=== PATIENT | male | born 1955 ===

== ENCOUNTER 2018-08-23 11:18 | Inpatient (IN) ==
[2018-08-23] MEDS ORDERED: PANTOPRAZOLE 40 MG VIAL IV STA (11:35)
[2018-08-23] MEDS ORDERED: MIDAZOLAM 2 MG/2 ML VIAL IV STA (12:00)
[2018-08-23] MEDS ORDERED: SODIUM CHLORIDE 0.9% 2,000 ML IV STA (12:11)
[2018-08-23] MEDS ORDERED: NOREPINEPHRINE 4 MG/4 ML VIAL IV ONE (12:13)
[2018-08-23] MEDS ORDERED: HYDROCORTISONE 100 MG VIAL ONE (12:20)
[2018-08-23] MEDS: NOREPINEPHRINE 16 MG in SODIUM CHLORIDE 0.9% 234 ML IV PRN ×2 (12:25→19:31)
[2018-08-23] MEDS ORDERED: SODIUM BICARBONATE 50 MEQ/50 ML SYRINGE IV ONE ×5 (12:45→22:25)
[2018-08-23] MEDS ORDERED: PHENYLEPHRINE DRIP 40 MG/250 ML PREMIX IV ONE (12:53)
[2018-08-23] MEDS: PHENYLEPHRINE DRIP 40 MG/250 ML PREMIX IV SCH ×2 (12:56→17:55)
[2018-08-23 13:08] LABS: ABG HCO3 12.2 MMOL/L (20-26); ABG Oxygen Saturation 52.2 % (95-100); ABG PCO2 51.2 MM HG (35-48); ABG PO2 47.8 MM HG (80-95); ABG TCO2 13.8 MMOL/L (23-27)
[2018-08-23 13:10] LABS: ABG PH 6.996 (7.35-7.45)
[2018-08-23 13:11] LABS: Basophils # 0.1 10*3/uL (0.0-0.2); Basophils % 0.3 % (0.0-0.8); Eosinophils # 0.1 10*3/uL (0.0-0.87); Eosinophils % 0.7 % (0.00-10.9); Hematocrit 21.3 VOL% (42.0-52.0); Immature Granulocytes % 4.6 %; Immature Granulocytes Absolute 0.94 #; Lymphocytes # 3.7 10*3/uL (1.4-4.0); Lymphocytes % 17.9 % (21.2-54.2); Mean Corpuscular Hemoglobin 33 PG (27-34); Mean Corpuscular Volume 108.7 FL (87-102); Mean Platelet Volume 14.4 FL (9.6-12.0); Monocytes # 1.4 10*3/uL (0.11-0.8); NRBC # 0.04 10*3/uL; Neutrophils # 14.2 10*3/uL (1.4-7.4); Neutrophils % 69.5 % (38.7-73.9); Platelet Count 200 T/CUMM (130-400); Red Blood Count 1.96 MC/CUMM (3.8-5.5); White Blood Count 20.4 T/CUMM (4-12)
[2018-08-23] MEDS ORDERED: SODIUM CHLORIDE 0.9% 1,000 ML IV PRN ×2 (13:13→21:48)
[2018-08-23 13:14] LABS: Hemoglobin 6.4 GM/DL (14.0-18.0)
[2018-08-23] MEDS ORDERED: ONDANSETRON 4 MG/2 ML VIAL IV PRN (13:22)
[2018-08-23] MEDS ORDERED: MORPHINE 4 MG/1 ML VIAL IV PRN (13:22)
[2018-08-23] MEDS ORDERED: ALBUTEROL 2.5 MG/3 ML NEB RESP TX PRN (13:22)
[2018-08-23] MEDS ORDERED: ACETAMINOPHEN 325 MG TABLET PO PRN (13:22)
[2018-08-23] MEDS ORDERED: ALBUTEROL/IPRATROPIUM 3 ML NEB RESP TX PRN (13:22)
[2018-08-23 13:30] LABS: INR 1.6; PT Patient Result 17.8 SECS; Partial Thromboplastin Time 34.9 SECS (0-40)
[2018-08-23 13:36] LABS: Alanine Aminotransferase 303 U/L (16-61); Albumin 1.5 G/DL (3.4-5.0); Alkaline Phosphatase 159 U/L (45-117); Aspartate Amino Transferase > 1000 U/L (0-37); Blood Urea Nitrogen 21 MG/DL (7-18); Calcium 7.9 MG/DL (8.5-10.1); Glucose 87 MG/DL (74-106); Potassium 5.9 MMOL/L (3.5-5.1); Sodium 143 MMOL/L (136-145); Total Protein 5.7 G/DL (6.4-8.3)
[2018-08-23 13:39] LABS: Band Neutrophils 2 % (0-10); Eosinophils 2 % (0-10); Hypochromasia 1+; Lymphocytes 15 % (20-55); Myelocytes 1 %; Segmented Neutrophils 74 % (50-85); Total Cells Counted 100
[2018-08-23 13:40] LABS: Anisocytosis Slight; Platelet Estimate Adequate
[2018-08-23] MEDS: PANTOPRAZOLE 40 MG VIAL IV SCH (13:53)
[2018-08-23] MEDS: cefTRIAXone 1,000 MG in SYRINGE 1 EACH IV SCH (13:55)
[2018-08-23] MEDS ORDERED: SODIUM BICARBONATE 50 MEQ/50 ML VIAL IV ONE ×3 (14:14→14:22)
[2018-08-23] MEDS ORDERED: HYDROCORTISONE 100 MG VIAL IV ONE (14:14)
[2018-08-23] MEDS ORDERED: HEPARIN/NACL 0.9% 2 UNITS/ML 2,000 ML IV ONE (14:23)
[2018-08-23] MEDS ORDERED: SODIUM CHLORIDE 0.9% 1,000 ML IV STA (14:23)
[2018-08-23] MEDS: SODIUM BICARB INJ 150 MEQ in DEXTROSE 5% 850 ML IV SCH ×2 (14:45→20:43)
[2018-08-23] MEDS ORDERED: CALCIUM GLUCONATE 1,000 MG in SODIUM CHLORIDE 0.9% 100 ML IV ONE (15:00)
[2018-08-23] MEDS ORDERED: VECURONIUM 10 MG VIAL IV ONE ×2 (15:01→15:02)
[2018-08-23 15:27] LABS: ABG Base Excess -19.4 MMOL/L (-2.5-2.5); ABG HCO3 10.1 MMOL/L (20-26); ABG Oxygen Saturation 99.5 % (95-100); ABG PCO2 30.7 MM HG (35-48); Glucose Heart Surgery 135 MG/DL (74-106); Hematocrit Heart Surgery 29.1 PERCENT (42-52); Hemoglobin Heart Surgery 9.4 G/DL (14.0-18.0); Potassium Heart/CVR 5.5 MMOL/L (3.5-5.1)
[2018-08-23 15:32] LABS: ABG PH 7.093 (7.35-7.45)
[2018-08-23] MEDS ORDERED: ceFAZolin 1,000 MG VIAL ONE (16:28)
[2018-08-23] MEDS ORDERED: MIDAZOLAM 2 MG/2 ML VIAL ONE (18:32)
[2018-08-23] MEDS ORDERED: ROCURONIUM 100 MG/10 ML VIAL IV ONE (18:32)
[2018-08-23 18:45] LABS: Apearance,Urine Slightly Hazy (Clear); Bilirubin,Urine Negative (Negative); Blood, Urine Large mg/dL (Negative); Glucose,Urine (UA) Negative (Negative); Ketones,Urine Negative (Negative); Nitrite,Urine Negative (Negative); Protein,Urine Negative; RBC,Urine <1 /HPF (0-4); Urine Color Yellow (Yellow); Urine Urobilinogen < 2.0 EU/DL (0.2-1.0); WBC,Urine 1 /HPF (0-6)
[2018-08-23 19:01] LABS: Barbiturates Screen,Urine Negative (Negative); Benzodiazepines Screen,Urine Negative (Negative); Cannabinoid Screen,Urine Negative (Negative); Opiate Screen,Urine Negative (Negative); Phencyclidine Screen,Urine Negative (Negative)
[2018-08-23] MEDS: PROPOFOL 1,000 MG/100 ML BOTTLE IV SCH (19:18)
[2018-08-23] MEDS: MIDAZOLAM 100 MG in SODIUM CHLORIDE 0.9% 80 ML IV SCH (19:18)
[2018-08-23 20:01] LABS: Basophils # 0.1 10*3/uL (0.0-0.2); Basophils % 0.4 % (0.0-0.8); Eosinophils # 0.1 10*3/uL (0.0-0.87); Eosinophils % 0.2 % (0.00-10.9); Hematocrit 32.6 VOL% (42.0-52.0); Immature Granulocytes % 2.9 %; Immature Granulocytes Absolute 0.95 #; Lymphocytes # 4.4 10*3/uL (1.4-4.0); Lymphocytes % 13.4 % (21.2-54.2); Mean Corpuscular HGB Conc 30.7 GM/DL (32-36); Mean Corpuscular Hemoglobin 32 PG (27-34); Mean Corpuscular Volume 102.8 FL (87-102); Mean Platelet Volume 14.1 FL (9.6-12.0); Monocytes # 2.6 10*3/uL (0.11-0.8); Monocytes % 7.9 % (1.7-12.7); Neutrophils # 24.6 10*3/uL (1.4-7.4); Neutrophils % 75.2 % (38.7-73.9); Platelet Count 183 T/CUMM (130-400); Red Blood Count 3.17 MC/CUMM (3.8-5.5); Red Cell Distribution Width 17.1 % (9.3-17.3); White Blood Count 32.8 T/CUMM (4-12)
[2018-08-23 20:21] LABS: Lymphocytes 14 % (20-55); Segmented Neutrophils 79 % (50-85); Total Cells Counted 100
[2018-08-23 20:22] LABS: Platelet Estimate Adequate
[2018-08-23 20:31] LABS: Albumin 1.6 G/DL (3.4-5.0); Bilirubin,Total 6.1 MG/DL (0.2-1.0); Calcium 7.5 MG/DL (8.5-10.1); Osmolality,Calculated 289.1 MOS/KG (273-304); Potassium 5.8 MMOL/L (3.5-5.1); Total Protein 5.9 G/DL (6.4-8.3)
[2018-08-23] MEDS: PHENYLEPHRINE INJ 160 MG in SODIUM CHLORIDE 0.9% 234 ML IV PRN (20:39)
[2018-08-23] MEDS ORDERED: DOPamine 800 MG/250 ML PREMIX IV ONE (20:54)
[2018-08-23] MEDS: DOPamine 800 MG/250 ML PREMIX IV PRN ×2 (21:00→23:26)
[2018-08-23 22:05] LABS: Hematocrit 31.1 VOL% (42.0-52.0); Hemoglobin 9.5 GM/DL (14.0-18.0)
[2018-08-23 22:13] LABS: ABG Base Excess -22.9 MMOL/L (-2.5-2.5); ABG HCO3 8.6 MMOL/L (20-26); ABG PCO2 27.8 MM HG (35-48); ABG TCO2 7.1 MMOL/L (23-27)
[2018-08-23 22:17] LABS: ABG PH 7.035 (7.35-7.45)
[2018-08-23] MEDS: VASOPRESSIN 100 UNITS in SODIUM CHLORIDE 0.9% 95 ML IV SCH (23:40)
[2018-08-24 00:38] LABS: ABG Base Excess -22.4 MMOL/L (-2.5-2.5); ABG HCO3 6.8 MMOL/L (20-26); ABG Oxygen Saturation 99.2 % (95-100); ABG PCO2 25.7 MM HG (35-48); ABG PO2 345.5 MM HG (80-95); ABG TCO2 7.6 MMOL/L (23-27)
[2018-08-24 00:41] LABS: ABG PH 7.039 (7.35-7.45)
[2018-08-24] MEDS: DOPamine 800 MG/250 ML PREMIX IV PRN ×4 (01:50→09:42)
[2018-08-24] MEDS: NOREPINEPHRINE 16 MG in SODIUM CHLORIDE 0.9% 234 ML IV PRN ×3 (02:12→17:59)
[2018-08-24] MEDS: SODIUM BICARB INJ 150 MEQ in DEXTROSE 5% 850 ML IV SCH ×3 (03:24→17:57)
[2018-08-24] MEDS: PHENYLEPHRINE INJ 160 MG in SODIUM CHLORIDE 0.9% 234 ML IV PRN ×3 (04:49→23:06)
[2018-08-24 04:55] LABS: ABG Base Excess -23.5 MMOL/L (-2.5-2.5); ABG Oxygen Saturation 99.1 % (95-100); ABG PCO2 26.2 MM HG (35-48); ABG TCO2 6.5 MMOL/L (23-27)
[2018-08-24 05:03] LABS: Basophils # 0.2 10*3/uL (0.0-0.2); Basophils % 0.6 % (0.0-0.8); Eosinophils # 0.1 10*3/uL (0.0-0.87); Eosinophils % 0.2 % (0.00-10.9); Hematocrit 35.7 VOL% (42.0-52.0); Immature Granulocytes % 3.8 %; Immature Granulocytes Absolute 1.44 #; Lymphocytes # 5.9 10*3/uL (1.4-4.0); Lymphocytes % 15.7 % (21.2-54.2); Mean Corpuscular HGB Conc 30.8 GM/DL (32-36); Mean Corpuscular Hemoglobin 31 PG (27-34); Monocytes # 2.8 10*3/uL (0.11-0.8); Monocytes % 7.6 % (1.7-12.7); NRBC # 0.04 10*3/uL; Neutrophils # 27.1 10*3/uL (1.4-7.4); Neutrophils % 72.1 % (38.7-73.9); Platelet Count 134 T/CUMM (130-400); Red Cell Distribution Width 18.2 % (9.3-17.3); White Blood Count 37.6 T/CUMM (4-12)
[2018-08-24 05:09] LABS: ABG PH 7.019 (7.35-7.45)
[2018-08-24] MEDS ORDERED: SODIUM BICARBONATE 50 MEQ/50 ML SYRINGE IV ONE ×3 (05:20→05:21)
[2018-08-24 05:22] LABS: Band Neutrophils 6 % (0-10); Burr Cells Slight; Eosinophils 1 % (0-10); Hypochromasia 1+; Lymphocytes 15 % (20-55); Myelocytes 2 %; Ovalocytes Slight; Platelet Estimate Normal; Segmented Neutrophils 69 % (50-85); Total Cells Counted 100
[2018-08-24 06:30] LABS: Albumin 1.6 G/DL (3.4-5.0); Bilirubin,Total 7.2 MG/DL (0.2-1.0); Calcium 6.7 MG/DL (8.5-10.1); Osmolality,Calculated 293.5 MOS/KG (273-304); Potassium 5.6 MMOL/L (3.5-5.1); Total Protein 5.7 G/DL (6.4-8.3)
[2018-08-24] MEDS: VASOPRESSIN 100 UNITS in SODIUM CHLORIDE 0.9% 95 ML IV SCH ×2 (08:00→16:31)
[2018-08-24] MEDS: INSULIN REGULAR 100 UNIT/ML SUBCUT SCH ×2 (11:21→18:31)
[2018-08-24] MEDS: HYDROCORTISONE 100 MG VIAL IV SCH ×2 (11:22→18:34)
[2018-08-24] MEDS: PROPOFOL 1,000 MG/100 ML BOTTLE IV SCH (13:47)
[2018-08-24] MEDS: MIDAZOLAM 100 MG in SODIUM CHLORIDE 0.9% 80 ML IV SCH (13:53)
[2018-08-24] MEDS: cefTRIAXone 1,000 MG in SYRINGE 1 EACH IV SCH (14:05)
[2018-08-24] MEDS: PANTOPRAZOLE 40 MG VIAL IV SCH (14:05)
[2018-08-24] MEDS ORDERED: risperiDONE 0.25 MG TABLET PER TUBE PRN (17:22)
[2018-08-24] MEDS ORDERED: LORazepam 2 MG/1 ML VIAL IV PRN (17:22)
[2018-08-24] MEDS: THIAMINE 200 MG/2 ML VIAL IV SCH (18:31)
[2018-08-24] MEDS: PHYTONADIONE 5 MG/5 ML ORAL.SYR PER TUBE SCH (18:33)
[2018-08-24 18:42] LABS: Hematocrit 33.2 VOL% (42.0-52.0); Hemoglobin 10.5 GM/DL (14.0-18.0)
[2018-08-24 19:12] LABS: Calcium 6.1 MG/DL (8.5-10.1); Osmolality,Calculated 290.7 MOS/KG (273-304)
[2018-08-24] MEDS ORDERED: SODIUM BICARB IV SCH (20:00)
[2018-08-24] MEDS ORDERED: INSULIN REGULAR IV SCH (20:00)
[2018-08-24] MEDS ORDERED: [UNRECOGNIZED DRUG - OTHER] IV SCH (20:00)
[2018-08-24] MEDS ORDERED: DEXTROSE IV SCH (20:00)
[2018-08-25] MEDS: NOREPINEPHRINE 16 MG in SODIUM CHLORIDE 0.9% 234 ML IV PRN ×4 (00:19→19:31)
[2018-08-25] MEDS: VASOPRESSIN 100 UNITS in SODIUM CHLORIDE 0.9% 95 ML IV SCH ×3 (00:29→17:49)
[2018-08-25] MEDS: SODIUM BICARB INJ 150 MEQ in DEXTROSE 5% 850 ML IV SCH ×2 (00:32→07:00)
[2018-08-25] MEDS: INSULIN REGULAR 100 UNIT/ML SUBCUT SCH ×4 (00:35→18:20)
[2018-08-25 02:18] LABS: ABG HCO3 17.9 MMOL/L (20-26); ABG Oxygen Saturation 93.4 % (95-100); ABG PCO2 32.2 MM HG (35-48); ABG PO2 75.4 MM HG (80-95); ABG TCO2 15.5 MMOL/L (23-27)
[2018-08-25 02:33] LABS: Basophils # 0.1 10*3/uL (0.0-0.2); Basophils % 0.2 % (0.0-0.8); Hematocrit 31.3 VOL% (42.0-52.0); Hemoglobin 10.3 GM/DL (14.0-18.0); Immature Granulocytes % 2.9 %; Immature Granulocytes Absolute 0.73 #; Lymphocytes # 1.8 10*3/uL (1.4-4.0); Lymphocytes % 7.1 % (21.2-54.2); Mean Corpuscular HGB Conc 32.9 GM/DL (32-36); Mean Corpuscular Hemoglobin 31 PG (27-34); Mean Corpuscular Volume 95.1 FL (87-102); Mean Platelet Volume 13.9 FL (9.6-12.0); Monocytes # 2.1 10*3/uL (0.11-0.8); Monocytes % 8.3 % (1.7-12.7); NRBC # 0.53 10*3/uL; Neutrophils # 20.2 10*3/uL (1.4-7.4); Neutrophils % 81.5 % (38.7-73.9); Platelet Count 136 T/CUMM (130-400); Red Blood Count 3.29 MC/CUMM (3.8-5.5); Red Cell Distribution Width 18.6 % (9.3-17.3); White Blood Count 24.8 T/CUMM (4-12)
[2018-08-25 02:50] LABS: INR 3.2
[2018-08-25 02:58] LABS: PT Patient Result 34.3 SECS
[2018-08-25 02:59] LABS: Partial Thromboplastin Time 46.7 SECS (0-40)
[2018-08-25 03:21] LABS: Albumin 1.5 G/DL (3.4-5.0); Bilirubin,Total 10.9 MG/DL (0.2-1.0); Osmolality,Calculated 288.5 MOS/KG (273-304); Total Protein 5.1 G/DL (6.4-8.3)
[2018-08-25 03:50] LABS: Potassium 6.5 MMOL/L (3.5-5.1)
[2018-08-25] MEDS ORDERED: [UNRECOGNIZED DRUG - OTHER] IV SCH (04:30)
[2018-08-25] MEDS ORDERED: INSULIN REGULAR IV SCH (04:30)
[2018-08-25] MEDS ORDERED: SODIUM BICARB IV SCH (04:30)
[2018-08-25] MEDS ORDERED: DEXTROSE IV SCH (04:30)
[2018-08-25 04:34] LABS: Band Neutrophils 17 % (0-10); Eosinophils 1 % (0-10); Lymphocytes 7 % (20-55); Metamyelocytes 7 %; Myelocytes 1 %; Nucleated Red Blood Cells 1 (0-5); Segmented Neutrophils 59 % (50-85); Total Cells Counted 100
[2018-08-25 04:35] LABS: Hypochromasia Slight; Platelet Estimate Decreased
[2018-08-25] MEDS: HYDROCORTISONE 100 MG VIAL IV SCH ×3 (05:38→19:30)
[2018-08-25] MEDS: PROPOFOL 1,000 MG/100 ML BOTTLE IV SCH ×2 (06:30→14:28)
[2018-08-25] MEDS ORDERED: SODIUM POLYSTYRENE SULFATE 15 GM/60 ML BOTTLE RECTAL ONE (06:45)
[2018-08-25] MEDS ORDERED: SODIUM POLYSTYRENE SULFATE 15 GM/60 ML BOTTLE PER TUBE ONE (06:45)
[2018-08-25] MEDS: THIAMINE 200 MG/2 ML VIAL IV SCH (08:35)
[2018-08-25] MEDS: PHYTONADIONE 5 MG/5 ML ORAL.SYR PER TUBE SCH (08:35)
[2018-08-25] MEDS ORDERED: CALCIUM GLUCONATE 2,000 MG in SODIUM CHLORIDE 0.9% 100 ML IV ONE (09:00)
[2018-08-25] MEDS ORDERED: SODIUM CHLORIDE 0.9% 1,000 ML IV ONE (09:02)
[2018-08-25 09:38] LABS: Hematocrit 28.4 VOL% (42.0-52.0); Hemoglobin 9.9 GM/DL (14.0-18.0)
[2018-08-25] MEDS ORDERED: ALBUTEROL 2.5 MG/3 ML NEB RESP TX ONE (10:06)
[2018-08-25] MEDS ORDERED: SODIUM BICARBONATE 50 MEQ/50 ML SYRINGE IV ONE (10:30)
[2018-08-25] MEDS ORDERED: DEXTROSE 50% 25 GM/50 ML SYRINGE IV ONE (10:30)
[2018-08-25] MEDS ORDERED: INSULIN REGULAR 100 UNIT/ML IV ONE (10:30)
[2018-08-25] MEDS: SODIUM BICARB INJ 50 MEQ in SODIUM CHLORIDE 0.45% 1,000 ML IV SCH ×2 (10:36→15:11)
[2018-08-25] MEDS: cefTRIAXone 1,000 MG in SYRINGE 1 EACH IV SCH (14:08)
[2018-08-25] MEDS: PANTOPRAZOLE 40 MG VIAL IV SCH (14:08)
[2018-08-25] MEDS ORDERED: CLINDAMYCIN INJ 600 MG in PREMIX 1 EACH IV SCH (15:00)
[2018-08-25] MEDS: HYDROmorphone 2 MG/1 ML VIAL IV PRN ×2 (15:35→21:26)
[2018-08-25] MEDS: DOPamine 800 MG/250 ML PREMIX IV PRN ×2 (15:40→19:32)
[2018-08-25] MEDS ORDERED: ALBUMIN 25% 25 GM in PREMIX 1 EACH IV SCH (17:00)
[2018-08-25] MEDS ORDERED: SODIUM BICARB INJ 150 MEQ in DEXTROSE 5% 850 ML IV SCH (18:00)
[2018-08-25 18:19] LABS: Hematocrit 30.6 VOL% (42.0-52.0); Hemoglobin 10.3 GM/DL (14.0-18.0)
[2018-08-25] MEDS: PHENYLEPHRINE INJ 160 MG in SODIUM CHLORIDE 0.9% 234 ML IV PRN (18:41)
[2018-08-25] MEDS ORDERED: SODIUM POLYSTYRENE SULFATE 15 GM/60 ML BOTTLE RECTAL SCH (21:00)
[2018-08-25 22:56] VITALS: BP 41/29
[2019-08-09] MEDS ORDERED: INFLUENZA VIRUS VACCINE 0.5 ML SYRINGE IM ONE (19:25)
== END 2018-08-25 22:13 | disposition expired | DRG 981 ==
LOC: N.ED 11:18 → SUATTDRO 11:57 → N.EDINP 11:57 → N.CC 13:24
PROVIDERS: ADMIT Family Medicine; ATTEND Internal Medicine
PROC: [UNRECOGNIZED PROCEDURE] (2018-08-23 15:05)